=== PATIENT | male | born 2000 | race Caucasian/White ===

== ENCOUNTER 2021-11-19 17:58 | Emergency (ER) | payer BC ==
[2021-11-19] MEDS ORDERED: Benzocaine 20% Topical Spray UD MUCMEM ONE (20:06)
[2021-11-19] MEDS ORDERED: Lidocaine 2% Viscous Solution 15 ML UD PO ONE (20:06)
== END 2021-11-19 20:19 | disposition home or self-care (01) ==
LOC: MW.ED 17:58
DX: K04.7 Periapical abscess without sinus (principal); Z88.8 Allergy status to other drugs, medicaments and biological substances
CPT/HCPCS: 99282; A9270

== ENCOUNTER 2023-06-20 01:10 | Emergency (ER) | payer BC ==
[2023-06-20 02:17] LABS: CORONAVIRUS COVID-19 NAA NEGATIVE (NEGATIVE); INFLUENZA A NAA NEGATIVE (NEGATIVE); INFLUENZA B NAA NEGATIVE (NEGATIVE); RESPIRATORY SYNCYTIAL VIR NAA NEGATIVE (NEGATIVE)
== END 2023-06-20 01:54 | disposition home or self-care (01) ==
LOC: MW.ED 01:10
DX: H66.91 Otitis media, unspecified, right ear (principal); H60.91 Unspecified otitis externa, right ear; R05.9 Cough, unspecified; Z88.1 Allergy status to other antibiotic agents
CPT/HCPCS: 0241U; 87651; 99283